=== PATIENT | female | born 1990 | race African-American/Black ===

== ENCOUNTER 2017-03-10 15:02 | Emergency (ER) | payer OTHER, MEDICAID ==
[~2017-03-10] VITALS: Ht 162.6 cm; Wt 57.0 kg
[~2017-03-10 15:02] MED LIST: BENTYL10 MG OR; CEPHALEXIN500 MG PO; DARVOCET-N 100100 MG OR; FLAGYL500 MG OR; LORTAB 5 OR; LORTAB 7.57.5 MG PO; MEDDOSEPAK PO; MOTRIN800 MG PO; NEXIUM40 M1 PO; PENICILLN VK500 MG PO; SPRINTEC 2828 DAY PO; ULTRAM50 M1 PO
[2017-03-10] MEDS ORDERED: PRENA1 CHEW 1.41 CHW PO (15:15)
[2017-03-10 17:21] VITALS: BP 122/75
== END 2017-03-10 17:34 | disposition home or self-care (01) | DRG 923 ==
LOC: ED 15:02
DX: Z04.1 Encounter for examination and observation following transport accident (principal); O26.891 Other specified pregnancy related conditions, first trimester; V49.49XA Driver injured in collision with other motor vehicles in traffic accident, initial encounter; Y92.414 Local residential or business street as the place of occurrence of the external cause

== ENCOUNTER 2017-03-13 11:46 | Emergency (ER) | payer OTHER, MEDICAID ==
[~2017-03-13] VITALS: Ht 162.6 cm; Wt 57.2 kg
[~2017-03-13 11:46] MED LIST changes: +PRENA1 CHEW 1.41 CHW PO
[2017-03-13 12:33] VITALS: BP 122/70
== END 2017-03-13 12:40 | disposition home or self-care (01) | DRG 552 ==
LOC: ED 11:46
DX: S33.5XXA Sprain of ligaments of lumbar spine, initial encounter (principal); Z33.1 Pregnant state, incidental; V89.2XXA Person injured in unspecified motor-vehicle accident, traffic, initial encounter

== ENCOUNTER 2017-09-28 07:20 | Inpatient (IN) | payer MEDICAID ==
[2017-09-28] VITALS (16 sets, daily range): BP systolic 115–149; BP diastolic 56–85
[~2017-09-28] VITALS: Ht 154.9 cm; Wt 74.4 kg
[~2017-09-28 07:20] MED LIST changes: +IRON325 M1 PO
[2017-09-28 07:21] LABS: URINE BILIRUBIN - DIPSTICK NEGATIVE (NEGATIVE); URINE BLOOD DIPSTICK TRACE-INTACT (NEGATIVE); URINE COLOR YELLOW; URINE GLUCOSE - DIPSTICK NEGATIVE (NEGATIVE); URINE KETONE NEGATIVE (NEGATIVE); URINE LEUK ESTERASE TRACE (NEGATIVE); URINE PH 6.5 (4.5-8.0); URINE PROTEIN - DIPSTICK NEGATIVE (NEG-TRACE); URINE UROBILINOGEN - DIPSTICK 0.2 E.U./dL (0.2)
[2017-09-28 07:26] LABS: BARBITURATES NEGATIVE (NEGATIVE); COCAINE NEGATIVE (NEGATIVE); METHADONE NEGATIVE (NEGATIVE); OXCYCODONE NEGATIVE (NEGATIVE); TETRAHYDROCANNABIONOL NEGATIVE (NEGATIVE); TRICYLIC ANTIDEPRESSANTS NEGATIVE (NEGATIVE); URINE CLARITY CLEAR; URINE NITRITE - DIPSTICK NEGATIVE (Negative)
[2017-09-28 09:08] LABS: HEMATOCRIT 34.4 % (37.0-47.0); HEMOGLOBIN 11.2 g/dl (12.0-16.0); IMMATURE GRANULOCYTES 0.7 % (0.0-1.0); MEAN CELL VOLUME 86.6 fL CALC (80.0-100.0); MEAN CORPUSCULAR HGB 28.2 pG CALC (26.0-32.0); MEAN CORPUSCULAR HGB CONC 32.6 g/L CALC (32.0-36.0); NEUT# 5.88 thou/uL (2.00-7.15); RED BLOOD COUNT 3.97 mill/uL (4.20-5.60); RED CELL DISTRI WIDTH 13.7 % (11.5-15.5)
[2017-09-28 09:19] LABS: ALBUMIN 3.7 g/dL (3.2-5.0); ALKALINE PHOSPHATASE 399 u/l (38-126); ANION GAP 14 (6-22 (CALC)); BILIRUBIN, TOTAL 0.6 mg/dL (0.0-1.4); BUN 12 mg/dL (7-17); BUN/CREATININE RATIO 15 (12-20 (CALC)); CALCIUM 9.4 mg/dL (8.4-10.2); CARBON DIOXIDE 22 mmol/l (22-30); CHLORIDE 107 mmol/l (95-108); CREATININE 0.8 mg/dL (0.5-1.0); GFR > 60 ML/MIN (>=60 (CALC)); GFR FOR AFR.AMER. > 60 ML/MIN (>=60 (CALC)); GLUCOSE 78 mg/dL (65-105); POTASSIUM 5.1 mmol/l (3.5-5.1); SGOT/AST 29 u/l (14-36); SGPT/ALT 31 u/l (9-52); SODIUM 138 mmol/l (137-146)
[2017-09-29 06:07] LABS: HEMATOCRIT 32.1 % (37.0-47.0); HEMOGLOBIN 10.5 g/dl (12.0-16.0); IMMATURE GRANULOCYTES 0.7 % (0.0-1.0); MEAN CELL VOLUME 86.5 fL CALC (80.0-100.0); MEAN CORPUSCULAR HGB 28.3 pG CALC (26.0-32.0); MEAN CORPUSCULAR HGB CONC 32.7 g/L CALC (32.0-36.0); NEUT# 9.48 thou/uL (2.00-7.15); RED BLOOD COUNT 3.71 mill/uL (4.20-5.60); RED CELL DISTRI WIDTH 13.9 % (11.5-15.5)
[2017-09-29 07:55] VITALS: BP 113/68
[2017-09-29 21:00] VITALS: BP 123/55
[2017-09-30 07:30] VITALS: BP 123/55
[2017-09-30] MEDS ORDERED: IBUPROFEN600 MG PO (08:13)
== END 2017-09-30 14:55 | disposition home or self-care (01) | DRG 775 ==
LOC: OB 07:20 → OBOP 07:20 → OB 08:10
PROVIDERS: ADMIT Obstetrics & Gynecology; ATTEND Obstetrics & Gynecology
PROC: 10D07Z6 Extraction of Products of Conception, Vacuum, Via Natural or Artificial Opening (ICD-10-PCS; principal; 2017-09-28)
PROC: 10907ZC Drainage of Amniotic Fluid, Therapeutic from Products of Conception, Via Natural or Artificial Opening (ICD-10-PCS; 2017-09-28)
DX: O76 Abnormality in fetal heart rate and rhythm complicating labor and delivery (principal); Z37.0 Single live birth; Z3A.38 38 weeks gestation of pregnancy

== ENCOUNTER → 2018-12-27 | Outpatient (REF) | payer MEDICAID ==
[~2018-12-27] MED LIST changes: +IBUPROFEN600 MG PO
== END | disposition home or self-care (01) ==
LOC: LAB 09:09
PROVIDERS: ATTEND Obstetrics & Gynecology
DX: Z32.01 Encounter for pregnancy test, result positive (principal)

== ENCOUNTER 2023-06-29 09:16 | Emergency (ER) | payer MEDICARE, MEDICAID ==
[~2023-06-29] VITALS: Ht 154.9 cm; Wt 79.4 kg
[2023-06-29 09:32] VITALS: BP 129/73
[2023-06-29 10:01] VITALS: BP 108/65
[2023-06-29 11:00] VITALS: BP 112/65
[2023-06-29] MEDS ORDERED: MELOXICAM7.5 MG PO (11:03)
[2023-06-29 11:16] VITALS: BP 106/69
== END 2023-06-29 11:24 | disposition home or self-care (01) ==
LOC: ED 09:16
DX: S83.004A Unspecified dislocation of right patella, initial encounter (principal); W01.0XXA Fall on same level from slipping, tripping and stumbling without subsequent striking against object, initial encounter